=== PATIENT | male | born 1990 | race American Indian/Alaskan Native ===

== ENCOUNTER 2017-03-01 14:37 | Emergency (ER) | payer OTHER ==
[2017-03-01] MEDS ORDERED: FLEXERIL PO ONE (17:15)
[2017-03-01] MEDS ORDERED: MOTRIN PO ONE (17:15)
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
--- NOTE | 2017-03-01 18:31 | XRay Report ---
FINAL REPORT PROCEDURE: XR SPINE THORACIC 2V TECHNIQUE: Two views of the thoracic spine are obtained HISTORY: pain COMPARISON: No prior studies are available for comparison. FINDINGS: Minimal dextroscoliosis is seen centered in the mid thoracic spine. No compression fracture or arthritic changes are seen. No subluxation is seen. IMPRESSION: Minimal scoliosis is seen. No fracture is seen.
--- NOTE | 2017-03-01 18:31 | XRay Report ---
FINAL REPORT PROCEDURE: XR FOREARM LT TECHNIQUE: Two views of the left forearm are obtained HISTORY: pain COMPARISON: No prior studies are available for comparison. FINDINGS: Normal bridging cortical vessel is seen in the proximal shaft of the radius. Soft tissue swelling is seen in the forearm. No fracture or dislocation is seen. IMPRESSION: Soft tissue swelling is seen.
[2017-03-01 19:28] VITALS: BP 122/79
== END 2017-03-01 19:44 | disposition home or self-care (01) ==
LOC: ED 14:37
DX: S20.211A Contusion of right front wall of thorax, initial encounter (principal); M54.6 Pain in thoracic spine; S59.912A Unspecified injury of left forearm, initial encounter; F17.200 Nicotine dependence, unspecified, uncomplicated; X58.XXXA Exposure to other specified factors, initial encounter; Y93.9 Activity, unspecified; Y92.9 Unspecified place or not applicable; Y99.9 Unspecified external cause status
CPT/HCPCS: 71020; 72070; 99284

== ENCOUNTER 2018-07-06 10:30 | Emergency (ER) | payer OTHER ==
[2018-07-06 11:17] VITALS: BP 132/98
[2018-07-06] MEDS ORDERED: MOTRIN PO ONE (15:32)
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
== END 2018-07-06 16:58 | disposition home or self-care (01) ==
LOC: ED 10:30
DX: S13.4XXA Sprain of ligaments of cervical spine, initial encounter (principal); S86.911A Strain of unspecified muscle(s) and tendon(s) at lower leg level, right leg, initial encounter; F17.200 Nicotine dependence, unspecified, uncomplicated; V89.2XXA Person injured in unspecified motor-vehicle accident, traffic, initial encounter; Y93.89 Activity, other specified; Y92.89 Other specified places as the place of occurrence of the external cause; Y99.8 Other external cause status
CPT/HCPCS: 72040; 99284